=== PATIENT | male | born 1965 | race Caucasian/White ===

== ENCOUNTER 2019-08-22 07:49 | Day surgery (SDC) | payer BC ==
[~2019-08-22] VITALS: Ht 185.4 cm; Wt 92.9 kg
[2019-08-22] VITALS (11 sets, daily range): BP systolic 122–160; BP diastolic 65–100
[2019-08-22] MEDS ORDERED: nitroGLYCERIN 0.4mg SUBLingual tab SL PRN (08:20)
[2019-08-22] MEDS ORDERED: methylPREDNISolone sod succ 125mg/2ml vial IV ONE (08:25)
[2019-08-22] MEDS ORDERED: diphenhydrAMINE 25mg capsule PO PRN (08:25)
[2019-08-22] MEDS ORDERED: normal saline 1,000 ML IV SCH (08:25)
[2019-08-22] MEDS ORDERED: LORazepam 0.5 MG tablet PO PRN (08:25)
[2019-08-22 09:12] LABS: EOSINOPHILS % (AUTO) 0.1 % (0-6); HEMOGLOBIN 17.7 g/dl (14.0-17.9); LYMPHOCYTES # (AUTO) 1.1 X10'3 (1.1-4.8); MONOCYTES # (AUTO) 0.2 X10'3 (0-0.9)
[2019-08-22 09:14] LABS: BASOPHILS % (AUTO) 0.5 % (0-1); LYMPHOCYTES % (AUTO) 11.6 % (21-51); MEAN PLATELET VOLUME 6.8 FL (7.4-10.4); MONOCYTES % (AUTO) 2.1 % (2-12); NEUTROPHILS # (AUTO) 8.2 X10'3 (1.8-7.7); NEUTROPHILS % (AUTO) 85.7 % (42-75); PLATELET COUNT 593 X10'3 (140-440); RED BLOOD COUNT 5.53 X10'6 (4.70-6.10); RED CELL DISTRIBUTION WIDTH 15.1 % (11.5-14.5); WHITE BLOOD COUNT 9.5 X10'3 (4.5-11.0)
[2019-08-22] MEDS ORDERED: CLOP75TA15 PO (09:23)
[2019-08-22] MEDS ORDERED: PRAV20TA4 PO (09:23)
[2019-08-22] MEDS ORDERED: CARV3.12 PO (09:23)
[2019-08-22] MEDS ORDERED: MELA5TAB12 PO (09:23)
[2019-08-22] MEDS ORDERED: ESLI400T PO (09:23)
[2019-08-22] MEDS ORDERED: LEVE500T PO (09:23)
[2019-08-22] MEDS ORDERED: PRED5TAB PO (09:23)
[2019-08-22] MEDS ORDERED: LISI-600 PO (09:23)
[2019-08-22] MEDS ORDERED: ASPI-1265 PO (09:23)
[2019-08-22 09:24] LABS: PARTIAL THROMBOPLASTIN TIME 30 SECONDS (22-32)
[2019-08-22 09:25] LABS: ALBUMIN 4.3 G/DL (3.4-5.0); ANION GAP 9 (8-16); BLOOD UREA NITROGEN 14 MG/DL (7-18); BUN/CREATININE RATIO 14.9 (5.4-32.0); CALCIUM 9.2 MG/DL (8.5-10.1); CHLORIDE 105 MMOL/L (99-107); CREATININE 0.94 MG/DL (0.60-1.10); GLUCOSE 121 MG/DL (70-104); POTASSIUM 4.2 MMOL/L (3.5-5.1); SODIUM 140 MMOL/L (135-145); TOTAL CARBON DIOXIDE 26.1 MMOL/L (24-32); eGFR 83 ML/MIN
[2019-08-22] MEDS ORDERED: heparin 1,000 UNITS/NS 500ml 500 ML ONE ×2 (10:37→10:38)
[2019-08-22] MEDS ORDERED: LIDOcaine 1% (10mg/ml)w/preservative injection 20ml MDV ONE (10:37)
[2019-08-22] MEDS ORDERED: iohexol 350 MG/ML 50ML vial IV ONE ×2 (10:37→11:35)
[2019-08-22] MEDS ORDERED: iohexol 350MG/ML 100ml bottle IV ONE ×2 (10:37→11:35)
[2019-08-22] MEDS ORDERED: midazolam 2 mg/2 ml injection ONE ×3 (10:39→11:40)
[2019-08-22] MEDS ORDERED: fentaNYL/PF 50MCG/1 ML 2ML syringe ONE (10:39)
[2019-08-22] MEDS ORDERED: HYDROcodone/acetaminophen 10/325mg tab PO PRN (12:15)
[2019-08-22] MEDS ORDERED: proCHLORperazine 10 MG/2 ml inj IV PRN (12:15)
[2019-08-22] MEDS ORDERED: OXAZEpam 15mg capsule PO PRN (12:15)
[2019-08-22] MEDS ORDERED: HYDROcodone/acetaminophen 5mg/325mg tablet PO PRN (12:15)
[2019-08-22] MEDS ORDERED: ondansetron/PF 4mg/2ml inj IV PRN (12:15)
--- NOTE | 2019-08-22 18:00 | NUR ---
Agree with Barb Doshi's documentation, assessments, and interventions.
== END 2019-08-22 18:00 | disposition home or self-care (01) ==
LOC: SSTAY O 07:49
PROVIDERS: ATTEND Internal Medicine Cardiovascular Disease
DX: R94.39 Abnormal result of other cardiovascular function study (principal); T82.856A Stenosis of peripheral vascular stent, initial encounter; I25.10 Atherosclerotic heart disease of native coronary artery without angina pectoris; I10 Essential (primary) hypertension; E78.5 Hyperlipidemia, unspecified; J44.9 Chronic obstructive pulmonary disease, unspecified; I25.2 Old myocardial infarction; Z91.013 Allergy to seafood; Z86.73 Personal history of transient ischemic attack (TIA), and cerebral infarction without residual deficits; Z95.5 Presence of coronary angioplasty implant and graft; Z79.01 Long term (current) use of anticoagulants; Z79.899 Other long term (current) drug therapy; Z79.82 Long term (current) use of aspirin; Y83.8 Other surgical procedures as the cause of abnormal reaction of the patient, or of later complication, without mention of misadventure at the time of the procedure; Y92.89 Other specified places as the place of occurrence of the external cause
CPT/HCPCS: 36415; 71046; 76937; 80048; 85025; 85610; 85730; 93005; 93458; 93567; 99152; 99153; C1769; J1644; J2001; J2250; J2930; J3010; J7030; Q0163; Q9967; A4620; A6258; C1751; C1760